=== PATIENT | male | born 1970 | race African-American/Black ===

== ENCOUNTER → 2016-12-12 | Outpatient (CLI) | payer BC ==
[2015-10-15 09:19] VITALS: BP 114/66
--- NOTE | 2016-12-13 07:29 | RAD ---
Bilateral hands, 4 views, 12/12/2016: History: Hand pain No fracture or dislocation is identified. There are only minimal spurs at scattered interphalangeal and MCP joints. No erosive changes are seen. The soft tissues are unremarkable. IMPRESSION: No acute hand abnormality is detected.
== END | disposition home or self-care (01) ==
LOC: RAD 16:27
PROVIDERS: ATTEND Physician Assistant Medical
DX: M79.642 Pain in left hand (principal); M19.042 Primary osteoarthritis, left hand
CPT/HCPCS: 73120

== ENCOUNTER → 2017-07-17 | Outpatient (CLI) | payer BC ==
[2015-10-15 09:19] VITALS: BP 114/66
--- NOTE | 2017-07-18 09:48 | RAD ---
Indication chronic pain. AP and lateral views of the left knee were obtained. There is slight patellofemoral narrowing. No additional finding is seen.
--- NOTE | 2017-07-18 10:29 | RAD ---
2 views left tibia and fibula 07/17/2017 2:00 AM Indication: PAIN IN LEFT LOWER LEG/CALF Comparison: None Findings: There is no fracture or dislocation identified. Articular surfaces are uninterrupted. Soft tissues are unremarkable. Impression: No evidence of acute osseous abnormality
== END | disposition home or self-care (01) ==
LOC: RAD 16:46
PROVIDERS: ATTEND Physician Assistant
DX: M79.662 Pain in left lower leg (principal)
CPT/HCPCS: 73560; 73590

== ENCOUNTER 2018-04-02 07:02 | Emergency (ER) | payer SELFPAY, BC, OTHER ==
[2018-04-02] MEDS: ORPHENADRINE CITRATE 60 MG/2 ML VIAL. IM (08:15)
[2018-04-02] MEDS: MORPHINE SULFATE 4 MG/ML DISP.SYRIN. IM (08:16)
[2018-04-02 08:38] LABS: BILIRUBIN,URINE NEGATIVE (NEG); CLARITY,URINE CLEAR; COLOR,URINE YELLOW; GLUCOSE,URINE NEGATIVE (NEG); NITRITE,URINE NEGATIVE (NEG); PH,URINE 6.5; PROTEIN,URINE NEGATIVE (NEG-TRACE); UROBILINOGEN,URINE 0.2 mg/dL (0.2 mg/dL)
[2018-04-02 08:46] LABS: BACTERIA,URINE FEW /HPF (0-FEW); RBC,URINE OCC /HPF (0-2); SQUAMOUS EPITHELIAL CELL,UR OCC /LPF
== END 2018-04-02 09:30 | disposition home or self-care (01) ==
LOC: ER 07:02
DX: M62.830 Muscle spasm of back (principal)
CPT/HCPCS: 81001; 96372; 99284; J2270; J2360